=== PATIENT | male | born 1945 | race Two or more races ===

== ENCOUNTER 2023-02-05 16:48 | Emergency (ER) | payer OTHER ==
[~2023-02-05] VITALS: Ht 182.9 cm; Wt 84.0 kg
[2023-02-05] MEDS ORDERED: HYDROmorphone HCL 2 MG/ML VL/or syr IM ONE (20:45)
[2023-02-05] MEDS ORDERED: HYDROmorphone HCL 2 MG/ML VL/or syr IV ONE (22:15)
[2023-02-05] MEDS ORDERED: SODIUM CHLORIDE 0.9% 1,000 ML IV ONE (22:30)
[2023-02-05 23:11] LABS: Basophils # (auto) 0 10 ^3/uL (0-0.2); Basophils % (auto) 0.4 % (0.0-2.0); Eosinophils # (auto) 0.2 10 ^3/uL (0-0.8); Eosinophils % (auto) 2.5 % (0.0-7.0); Hematocrit 47.4 % (41.0-53.0); Lymphocytes # (auto) 1.1 10 ^3/uL (0.4-5.4); Mean Corpuscular Hemoglobin 30.4 pg (28.0-32.0); Mean Corpuscular Hgb Conc. 33.7 g/dL (32.0-36.0); Mean Corpuscular Volume 90.1 fL (80.0-100.0); Monocytes # (auto) 0.5 10 ^3/uL (0-1.3); Monocytes % (auto) 7.1 % (0.0-12.0); Neutrophils # (auto) 4.8 10 ^3/uL (1.6-8.6); Nucleated Red Blood Cells % 0.1 %; Red Blood Cells 5.26 10^6/uL (4.5-5.90); Red Cell Distribution Width 15.1 % (11.8-14.3); White Blood Cell 6.6 10^3/uL (4.4-10.8)
[2023-02-05 23:24] LABS: Albumin 2.6 g/dL (3.4-5.0); Calcium 8.3 mg/dL (8.5-10.1)
[2023-02-05 23:29] LABS: Bilirubin, Total 1.4 mg/dL (0.2-1.0); Total Protein 5.5 g/dL (6.4-8.2)
[2023-02-06] MEDS ORDERED: HYDROcodone-ACET 10/325MG TAB PO ONE (00:45)
[2023-02-06 04:11] LABS: Urine Bacteria NONE SEEN /hpf (None Seen); Urine Blood 2+ /uL (Negative); Urine Mucus FEW (None Seen); Urine Specific Gravity 1.009 (1.001-1.035); Urine WBC 2 /hpf (0 - 3)
[2023-02-06] MEDS ORDERED: levETIRAcetam 500 MG TAB PO ONE (05:15)
[2023-02-06 07:18] VITALS: BP 132/80
== END 2023-02-06 08:05 | disposition short-term general hospital (02) ==
LOC: EDBD 16:48 → ER 16:48
DX: S32.039A Unspecified fracture of third lumbar vertebra, initial encounter for closed fracture (principal); X58.XXXA Exposure to other specified factors, initial encounter; Y93.89 Activity, other specified; Y92.89 Other specified places as the place of occurrence of the external cause; Y99.8 Other external cause status
CPT/HCPCS: 36415; 72131; 80053; 81001; 84484; 85025; 93005; 96360; 99285; J1170; J7030